=== PATIENT | male | born 1945 | race Caucasian/White ===

== ENCOUNTER 2018-08-25 16:12 | Inpatient (IN) | payer MEDICARE, BC ==
[~2018-08-25] VITALS: Ht 175.3 cm; Wt 84.3 kg
--- NOTE | ~2018-08-25 | HEMODYNAMI ---
PATIENT:MILADYS MINER MEDICAL RECORD: [id number] : 43 LOCATION:[facility] D.2115 ADMISSION DATE: 08/25/18 Generatedon:08/26/20189:39 Patient name: MILADYS MINER Patient #: [id number] SSN: : 1945 Date of study: 08/26/2018 Page: Of Hemodynamic Procedure Report Patient Data Patient Demographics Procedure consent was obtained First Name: MILADYS Gender: Male Last Name: ISIDRA : 1945 [facility] Initial: R Age: 73 year(s) Patient #: [id number] Race: Unknown Additional ID: [id number] Contact details Address: [address] [address] State: [place] City: [place] Zip code: [address] Past Medical History Allergies Allergen Reaction Date Comments Reported Other allergy 08/26/2018 PCN Admission Admission Data Admission Date: 08/25/2018 Admission Time: 20:57 Admit Source: Other Room #: [facility] Procedure Procedure Types Cath Procedure Diagnostic Procedure C LHC w/Coronaries Peripheral Cath Diagnostic Procedure Permanent Mold Supervisor Peripheral Procedures Oyanq-Niotjco-Fuv-Off Procedure Description Procedure Date Procedure Date: 08/26/2018 Procedure Start Time: 9:26 Procedure End Time: 9:39 Procedure Staff Name Function Jhonny Young MD Performing Physician Sherif Kiser RT Monitor Zay Phillips RT Scrub Karoline Dhillon RT Scrub Iza Chacko RN Nurse Procedure Data Cath Procedure Fluoroscopy Diagnostic fluoroscopy Total fluoroscopy Time: 1.9 time: 1.9 min min Diagnostic fluoroscopy Total fluoroscopy dose: 641 dose: 641 mGy mGy Contrast Material Contrast Material Type Amount (ml) Isovue 300 116 Entry Location Entry Primary Successful Side Size Upsize Upsize Entry Closure Succes sful Closure Location (Fr) 1 (Fr) 2 (Fr) Remarks Device Remarks Femoral Right 5 Fr Exoseal artery Estimated blood loss: 5 ml Diagnostic catheters Device Type Used For End Catheter Placement MULTIPACK Pigtail 5 Fr Procedure catheter MULTIPACK JL 4.0 5Fr Procedure catheter MULTIPACK 3DRC 5Fr Procedure catheter Procedure Complications No complications Procedure Medications Medication Administration Route Dosage 0.9% NaCl I.V. 100 ml/hr Oxygen etCO2 Nasal cannula 2 l/min Lidocaine 2% added to field 20 Heparin Flush Bag added to field 2 bags (1000units/500ml NS) Versed I.V. 2 mg Fentanyl I.V. 50 mcg Versed I.V. 2 mg Fentanyl I.V. 50 mcg Hemodynamics Rest Heart Rate: 81 (bpm) Pressure Samples Time Site Value (mmHg) Purpose Heart Use Rate(bpm) 9:27 LV 153/18,21 Snapshot 80 9:27 AO 154/86(116) Pullback 79 9:27 LV 149/25,21 Pullback 79 Gradients Valve Time Site 1 Site 2 Mean SEP/DFP Peak To Heart Use (mmHg) (sec/min) Peak Rate (mmHg) (bpm) Aortic 9:27 LV AO 0 6 0 79 149/25,21 154/86(116) Calculations Valve P-P Mean Valve Index Valve Source Name Gradient Area Flow (cm2) Aortic 0 0 0 0 Snapshots Pre Cath Intra NCS Post Cath Vital Signs Time Heart Resp SPO2 etCO2 NIBP (mmHg) Rhythm Pain Sedation Rate (ipm) (%) (mmHg) Status Level (bpm) 9:02:48 76 19 98 33.5 183/108(146) NSR 0 (11) 10(A) , No pain 9:07:12 92 17 98 34.2 172/101(144) NSR 0 (11) 10(A) , No pain 9:11:28 80 14 97 40.9 155/89(131) NSR 0 (11) 10(A) , No pain 9:15:46 77 13 97 38.7 155/95(129) NSR 0 (11) 10(A) , No pain 9:20:00 80 10 97 37.2 153/93(124) NSR 0 (11) 10(A) , No pain 9:24:14 77 11 98 37.2 145/89(118) NSR 0 (11) 10(A) , No pain 9:28:30 83 13 97 40.1 146/85(121) NSR 0 (11) 10(A) , No pain 9:32:44 85 13 98 38.7 135/91(115) NSR 0 (11) 9(A) , No pain 9:37:00 86 28 98 29 131/78(105) NSR 0 (11) 10(A) , No pain Medications Time Medication Route Dose Verified Delivered Reason Notes Effe ctiveness by by 9:02:56 0.9% NaCl I.V. 100 Jhonny Iza used for ml/hr Denio Ricco procedure RN 9:03:41 Oxygen etCO2 2 Jhonny Iza used for Nasal l/min [facility] procedure cannula MD CRUZ 9:03:48 Lidocaine 2% added 20ml Jhonny Jhonny for local to vial [facility] anesthetic field MD PATTERSON 9:04:38 Heparin Flush added 2 Jhonny Jhonny used for Bag to bags [facility] procedure (1000units/500ml field MD PATTERSON NS) 9:22:58 Versed I.V. 2 mg Jhonny Iza for Denio Ricco sedation MD CRUZ 9:23:04 Fentanyl I.V. 50 Jhonny Iza for mcg Denio Ricco sedation MD CRUZ 9:28:27 Versed I.V. 2 mg Jhonny Iza for Denio Ricco sedation MD CRUZ 9:28:34 Fentanyl I.V. 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 8:32:15 H&P Date Dictated: 08/25/2018 Within 30 days and on chart.. 8:33:11 Lab Result : BUN 22 mg/dl 8:33:11 Lab Result : Creatinine 1.3 mg/dl 8:33:11 Lab Result : Hemoglobin 16.2 g/dl 8:33:11 Lab Result : Hematocrit 46.5 % 8:33:13 Lab results completed and on chart. 8:42:20 Zay SALINAS(R) sent for patient. Start room use. 8:55:38 Procedure type changed to Cath procedure, Diagnostic procedure, LHC, LHC w/Coronaries, Peripheral Cath Diagnostic Procedure, Permanent Mold Supervisor Peripheral Procedures, Rxkye-Fzfdduv-Zbg-Off 8:55:45 Patient received from Med II to CCL 1 Alert and oriented. Tansferred to table in Supine position. 8:55:46 Warm blankets applied, and natalee hugger turned on for patient comfort. 8:55:47 Correct patient and procedure confirmed by team. 8:55:47 ECG and BP/O2 sat monitors applied to patient. 8:55:48 Pre-procedure instructions explained to patient. 8:55:48 Pre-op teaching completed and patient verbalized understanding. 8:55:50 Family in patients room. 8:55:51 Patient NPO since Midnight. 8:56:00 Patient allergic to Other allergyPCN 9:01:33 Vital chart was started 9:01:37 Rhythm: sinus rhythm 9:01:39 Full Disclosure recording started 9:01:42 Is the patient allergic to Iodine/contrast media? No. 9:01:45 Is patient on blood thinner?No 9:01:47 Patient diabetic? No. 9:01:50 Previous problem with sedation/anesthesia? No ? 9:01:52 Snore? Yes 9:01:53 Sleep apnea? No 9:01:54 Deviated septum? No 9:01:55 Opens mouth fully? Yes 9:01:56 Sticks out tongue? Yes 9:01:58 Airway obstruction? No ? 9:02:00 Dentures? No ? 9:02:03 Pre procedure: right dorsailis pedis pulse 1+ Palpable, but thready & weak; easily obliterated 9:02:07 Pre procedure: left dorsailis pedis pulse 1+ Palpable, but thready & weak; easily obliterated 9:02:10 Patient pain scale 0/10 ?. 9:02:15 IV patent on arrival in left forearm with 0.9% NaCl at KVO. 9:02:24 Bilateral groins area was prepped with chlora-prep and draped in sterile fashion 9:02:26 Alarms reviewed by R. N. 9:02:27 Sharps counted by scrub and verified by R.N. 9:02:56 0.9% NaCl 100 ml/hr I.V. was administered by Iza Chacko RN; used for procedure; 9:03:41 Oxygen 2 l/min etCO2 Nasal cannula was administered by Iza Chacko RN; used for procedure; 9:03:48 Lidocaine 2% 20ml vial added to field was administered by Jhonny Young MD; for local anesthetic; 9:04:38 Heparin Flush Bag (1000units/500ml NS) 2 bags added to field was administered by Jhonny Young MD; used for procedure; 9:11:20 Use device set Femoral Dx 9:11:21 ACIST Syringe (97787) opened to sterile field. 9:11:21 Bag Decanter (2002S) opened to sterile field. 9:11:22 ACIST Hand Control (62376) opened to sterile field. 9:11:22 ACIST Manifold (46302) opened to sterile field. 9:11:23 Tegaderm 4 x 4 (1626W) opened to sterile field. 9:11:24 SHEATH 5FR Manila (OMC436) opened to sterile field. 9:11:25 Medline Cath Pack ([id number]) opened to sterile field. 9:11:26 DIAGNOSTIC WIRE .035 260cm J wire (280406) opened to sterile field. 9:11:26 DIAGNOSTIC Multipack 5Fr catheter set ([id number]) opened to sterile field. 9:11:31 Physician arrived 9:11:32 --------ALL STOP TIME OUT------ 9:11:32 Final Timeout: patient, procedure, and site verified with staff and physician. All members of the team are in agreement. 9:11:34 Bilateral groins site verified by team. 9:11:36 Fire Safety Assessment: A--An alcohol-based skin anteseptic being used preoperatively., C--Open oxygen or nitrous oxide is being used., D--An ESU, laser, or fiber-optic light is being used. 9:11:39 Physical assessment completed. ASA score P 2 - A patient with mild systemic disease as per Jhonny Young MD. 9:11:41 Sedation plan: IV Moderate Sedation Medication:Versed, Fentanyl 9:15:17 Baseline sample Acquired. 9:22:58 Versed 2 mg I.V. was administered by Iza Ricco RN; for sedation; 9:23:04 Fentanyl 50 mcg I.V. was administered by Iza Chacko RN; for sedation; 9:25:40 Zero performed for pressure channel P1 9::47 Procedure started. 9::49 Local anesthetic to right femoral artery with Lidocaine 2% by Jhonny Young MD.INITIAL ACCESS ONLY 9:26:56 A 5 Fr sheath was inserted into the Right Femoral artery 9:27:00 A MULTIPACK Pigtail 5 Fr catheter was advanced over the wire and used for Procedure. 9::26 LV gram done using MANUEL 9::29 Injector settings: Ml/sec: 10, Volume: 20, 9:27:33 LV hemodynamics recorded. 9:27:37 EF : 55 % 9:28:24 Abdominal angiogram w/ runoff was performed. 9:28:25 Left leg runoff performed. 9::27 Versed 2 mg I.V. was administered by zIa Chacko RN; for sedation; 9::34 Fentanyl 50 mcg I.V. was administered by Iza Chacko RN; for sedation; 9:28:36 Right leg runoff performed. 9:29:14 Catheter exchanged over wire. 9:29:18 A MULTIPACK JL 4.0 5Fr catheter was advanced over the wire and used for Procedure. 9:30:53 LCA angiography performed. 9:31:57 Catheter exchanged over wire. 9:32:01 A MULTIPACK 3DRC 5Fr catheter was advanced over the wire and used for Procedure. 9:32:55 RCA angiography performed. 9:35:24 Catheter removed. 9:35:25 EXOSEAL 5Fr (EX500) opened to sterile field. 9:37:24 Sheath removed intact; hemostasis achieved with Exoseal to the Right Femoral artery. 9:37:26 Procedure ended.(Physican Out) 9:37:39 Fluoroscopy time 01.90 minutes. 9:37:43 Fluoroscopy dose: 641 mGy 9:37:43 Flurop Dose total: 641 9:37:46 Contrast amount:Isovue 300 116ml. 9:37:48 Sharps counted by scrub and verified by R.N. 9:38:20 Post-op/insertion site Right Femoral artery dressed using a 4 x 4 and Tegaderm. 9:38:24 Post right femoral artery:stable, soft, clean and dry 9:38:25 Post Procedure Pulses reassessed and unchanged 9:38:28 Post-procedure physical assessment completed. ASA score P 2 - A patient with mild systemic disease as per Jhonny Young MD. 9:38:31 Post procedure rhythm: unchanged. 9:38:42 Estimated blood loss: 5 ml 9:38:44 Post procedure instruction explained to patient.Patient verbalizes understanding. 9:38:44 Patient needs reinforcement of post procedure teaching. 9:39:13 Procedure Complication : No complications 9:39:15 Vital chart was stopped 9:39:15 See physician's report for complete and final results. 9:39:18 Report given to PCU. 9:39:21 Patient transfered to PCU with Stretcher. 9:39:23 Procedure ended. 9:39:23 Full Disclosure recording stopped 9:39:28 End room use (Document Last) Device Usage Item Name Manufacture Quantity Catalog Hospital Part Current Minimal L ot# / Number Charge Number Stock Stock Serial# Code ACIST Acist 1 41028 077606 733838 044015 20 Syringe Medical (98264) Systems Inc Bag Microtek 1 594266 78993 633717 5 Decanter Medical Inc. () ACIST Hand Acist 1 02909 465099 521888 311301 5 Control Medical (43510) Systems Inc ACIST Acist 1 72520 860289 808510 339776 5 Manifold Medical (19461) Systems Inc Tegaderm 4 3M 1 1626W 731467 210973 279710 5 x 4 (1626W) SHEATH 5FR Terumo 1 YIV896 880461 220225 699195 5 Manila (LXM911) Medline Medline 1 [id number] 571581 87083 811066 5 Cath Pack ([id number]) DIAGNOSTIC St Tariq 1 065089 077952 581590 685895 30 WIRE .035 260cm J wire (196858) DIAGNOSTIC Cardinal 1 QV9987 033468 48813 088194 30 Multipack Health 5Fr catheter set (YA0243) MULTIPACK Cardinal 1 067678 5 Pigtail 5 Health Fr catheter MULTIPACK Cardinal 1 232291 5 JL 4.0 5Fr Health catheter MULTIPACK Cardinal 1 374488 5 3DRC 5Fr Health catheter EXOSEAL 5Fr Cardinal 1 EX500 254475 943910 217808 10 (EX500) Health Signature Audit [place] Stage Time Signature Unsigned Intra-Procedure 08/26/2018 Sherif Kiser 9:39:42 AM RT(R) Signatures Monitor : Sherif Kiser RT Signature : Date : Time : [address] [place] [address]
[2018-08-25] MEDS ORDERED: NORVASC5 MG PO (16:35)
[2018-08-25] MEDS ORDERED: LIPITOR20 MG PO (16:35)
[2018-08-25] MEDS ORDERED: TRICOR145 MG PO (16:36)
[2018-08-25] MEDS ORDERED: NEURONTIN 300300 MG PO (16:36)
[2018-08-25] MEDS ORDERED: TOPROL XL50 MG PO (16:36)
[2018-08-25] MEDS ORDERED: LOW DOSE ASPIRI81 M1 PO (16:36)
[2018-08-25 17:01] LABS: BASOPHILS 0.4 % (0-2); EOSINOPHILS 2.8 % (0-7); HEMATOCRIT 46.5 % (42.0-54.0); HEMOGLOBIN 16.2 g/dL (13.5-17.5); IMMATURE GRANULOCYTES 0.4 % (0-5); LYMPHOCYTES 21.9 % (15-50); MCH 31.6 pg (26.0-34.0); MCHC 34.8 g/dL (31.0-37.0); MCV 90.6 fL (80.0-100.0); MEAN PLATELET VOLUME 10.2 fL (7.4-10.4); MONOCYTES 9.8 % (2-11); NEUTROPHILS 64.7 % (40-80); PLATELET COUNT 203 10x3/uL (130-400); RBC 5.13 10x6/uL (4.20-6.10); RDW 12.4 % (11.5-14.5); WBC 7.5 10x3/uL (4.8-10.8)
[2018-08-25 17:14] LABS: INR 1.06 (0.85-1.17); PROTIME 13.3 SECONDS (11.6-15.0)
[2018-08-25 17:28] LABS: ALBUMIN 3.7 g/dL (3.4-5.0); ALKALINE PHOSPHATASE 66 U/L (46-116); ALT (SGPT) 44 U/L (10-68); BILIRUBIN - TOTAL 0.39 mg/dL (0.2-1.3); CALC OSMOLALITY 278 mosm/kg (275-300); CARBON DIOXIDE 28.2 mmol/L (21.0-32.0); CHLORIDE - SERUM 102 mmol/L (98-107); CREATININE - SERUM 1.3 mg/dL (0.6-1.3); GLUCOSE 104 mg/dL (74-106); POTASSIUM - SERUM 4.2 mmol/L (3.5-5.1); PROTEIN - SERUM 6.9 g/dL (6.4-8.2); SODIUM 138 mmol/L (136-145); UREA NITROGEN 22 mg/dL (7-18); eGFR NON AFRICAN AMERICAN 57 mL/min (90-120)
[2018-08-25 17:49] LABS: CKMB 1.7 U/L (0.0-3.6); CREATINE KINASE 63 UL (21-232); MAGNESIUM - SERUM 2.3 mg/dL (1.8-2.4); TROPONIN-I 0.019 ng/mL (0.000-0.060)
[2018-08-25 17:58] VITALS: BP 159/88
[2018-08-25 18:58] VITALS: BP 143/86
--- NOTE | 2018-08-25 19:10 | NUR ---
PT REPORT NITRO RELIEVED CP A LITTLE BUT MAINLY REPORTS HAVING A HEADACHE AT THIS TIME. EXPLAINED VASODILATION PRIOR TO ADMIN AND AGAIN AT THIS TIME. PT ACKNOWLEDGED. PT STABLE AT HAND OFF TO ANTHONY GUEVARA. AT BEDSIDE.
--- NOTE | 2018-08-25 19:37 | NUR ---
ASSUMED CARE AT THIS TIME. PT DENIES CHEST PAIN AT THIS TIME. VSS. BP 170/97 HR 59, SPO2 96 RR 17. PT STATED HE HAD A HEADACHE BUT REFUSES ANY MEDICATION FOR IT. STATED IT WAS EASING UP. EXPLAINED TO PT THAT NITRO WILL CAUSE ALEXANDRE. PT VERBALIZED UNDERSTAINDS.
--- NOTE | 2018-08-25 22:45 | NUR ---
REPORT RECEIVED FROM ISMAEL CRUZ
--- NOTE | 2018-08-25 23:01 | NUR ---
ARRIVED TO FLOOR VIA WHEELCHAIR, ACCOMPANIED BY HOSPITAL STAFF AND FAMILY. ORIENTED TO UNIT AND PLACED ON TELEMETRY. CALL LIGHT IN REACH. SEE NURSE ASSESSMENT.
[2018-08-25] MEDS ORDERED: ALTACE10 MG PO (23:51)
[2018-08-26] VITALS (7 sets, daily range): BP systolic 120–158; BP diastolic 54–89; BMI 27.3
[2018-08-26 08:22] LABS: CALCIUM 9.2 mg/dL (8.5-10.1); CARBON DIOXIDE 26.8 mmol/L (21.0-32.0); CREATININE - SERUM 1.2 mg/dL (0.6-1.3); POTASSIUM - SERUM 3.8 mmol/L (3.5-5.1)
[2018-08-26 08:24] LABS: BASOPHILS 0.7 % (0-2); EOSINOPHILS 3.2 % (0-7); HEMATOCRIT 43.4 % (42.0-54.0); IMMATURE GRANULOCYTES 0.3 % (0-5); MCH 31.3 pg (26.0-34.0); MCHC 34.6 g/dL (31.0-37.0); MCV 90.4 fL (80.0-100.0); MEAN PLATELET VOLUME 10.4 fL (7.4-10.4); MONOCYTES 10.1 % (2-11); NEUTROPHILS 61.7 % (40-80); PLATELET COUNT 196 10x3/uL (130-400); RDW 12.5 % (11.5-14.5)
--- NOTE | 2018-08-26 08:50 | NUR ---
PRE-OPS GIV3EN. TO MINE INSPECTOR BY BED.
--- NOTE | 2018-08-26 11:54 | NUR ---
BED REST UP. GROIN STABLE.
--- NOTE | 2018-08-26 13:53 | NUR ---
BILAT SCDS ON ORDERED.
--- NOTE | 2018-08-26 16:51 | MORECARE ---
CASE MANAGEMENT DISCHARGE SUMMARY PATIENT: MILADYS MINER UNIT: [id number] ADM DATE: 08/25/18 AGE: 73 : [birth year] SEX: M ROOM/BED: D.2115 AUTHOR: GEORGE LALA PHYSICIAN: REFERRING PHYSICIAN: AMINA WILLETT MD DATE OF SERVICE: 08/26/18 Discharge Plan Patient Name: MILADYS MINER [facility] [facility] 1945 Planned Disposition: Anticipated Discharge Date: Discharge Date: Expected LOS: Initial Reviewer: [email or web address] Initial Review Date: 08/25/2018 Generated: 08/26/18 5:51 pm Coverage Notice Reviewer: [email or web address] - Dania Mendez Notice Issued Date-Time: 08/26/2018 16:21 Notice Type: Medicare Outpatient Observation Notice Notice Delivered To: Patient Relationship to Patient: Self Outside Plant Cable Engineer Name: Delivery Method: HAND - Hand Delivered Sandra Days: Prior Verbal Notification: Recipient Understood Notice: Yes Recipient Signature: Yes Med Rec Note Co-signed by Attending: Coverage Notice Comment: Patient Name: MILADYS MINER Page [phone] at 1651 All edits/amendments must be made on the electronic document DICTATION DATE: 08/26/181649 GIZZARD PEELER: GUCCI 08/26/181649 RPT#: [id number] DC DATE: STATUS: ADM IN [address] [address] [place] [address] END OF REPORT
[2018-08-26 17:41] LABS: BASOPHILS 0.6 % (0-2); EOSINOPHILS 2.4 % (0-7); HEMATOCRIT 45.7 % (42.0-54.0); HEMOGLOBIN 16.1 g/dL (13.5-17.5); IMMATURE GRANULOCYTES 0.2 % (0-5); LYMPHOCYTES 21.3 % (15-50); MCH 31.6 pg (26.0-34.0); MCHC 35.2 g/dL (31.0-37.0); MCV 89.6 fL (80.0-100.0); MEAN PLATELET VOLUME 10.1 fL (7.4-10.4); MONOCYTES 10.4 % (2-11); NEUTROPHILS 65.1 % (40-80); PLATELET COUNT 200 10x3/uL (130-400); RDW 12.4 % (11.5-14.5); WBC 6.3 10x3/uL (4.8-10.8)
[2018-08-26 17:59] LABS: APTT 26.4 SECONDS (22.8-39.4); INR 1.04 (0.85-1.17); PROTIME 13.1 SECONDS (11.6-15.0)
[2018-08-26 17:59] LABS: APPEARANCE CLEAR (CLEAR); BILIRUBIN NEGATIVE (NEGATIVE); COLOR YELLOW (YELLOW); GLUCOSE NEGATIVE (NEGATIVE); KETONE NEGATIVE (NEGATIVE); NITRITE NEGATIVE (NEGATIVE); PROTEIN NEGATIVE (NEGATIVE); UROBILINOGEN NORMAL (NORMAL)
[2018-08-26 18:01] LABS: ALBUMIN 3.6 g/dL (3.4-5.0); ANION GAP 13.8 mmol/L (8-16); BILIRUBIN - TOTAL 0.45 mg/dL (0.2-1.3); CALCIUM 8.3 mg/dL (8.5-10.1); CARBON DIOXIDE 26.2 mmol/L (21.0-32.0); CREATININE - SERUM 1.3 mg/dL (0.6-1.3); PHOSPHOROUS 3.4 mg/dL (2.5-4.9); PROTEIN - SERUM 6.4 g/dL (6.4-8.2); T4 THYROXIN - FREE 1.14 ng/dL (0.76-1.46); THYROID STIMULATING HORMONE 1.89 uIU/mL (0.36-3.74); URIC ACID 4.8 mg/dL (2.6-7.2)
--- NOTE | 2018-08-26 19:43 | NUR ---
RESUMED CARE OF PT, LYING IN BED RESPIRATIONS EVEN AND UNLABORED ON ROOM AIR. 93 SR ON TELEMETRY. LEFT AC SALINE LOCKED. RIGHT GROIN CATH SITE C/D/I. PLAN OF CARE DISCUSSED, NPO AFTER MIDNIGHT TONIGHT. CALL LIGHT IN REACH. SEE NURSE ASSESSMENT.
--- NOTE | 2018-08-26 21:30 | NUR ---
CLIPPED AND SHOWERED, LINENS CHANGED AND NIGHT MEDS GIVEN.
[2018-08-27] VITALS (29 sets, daily range): BP systolic 68–154; BP diastolic 54–83; BMI 27.1
--- NOTE | 2018-08-27 05:30 | NUR ---
CAIN KUMARI AT BEDSIDE. PEDAL PULSES PALPATED AND MARKED.
[2018-08-27 05:36] LABS: BASOPHILS 0.6 % (0-2); EOSINOPHILS 3.1 % (0-7); HEMATOCRIT 42.6 % (42.0-54.0); HEMOGLOBIN 14.6 g/dL (13.5-17.5); IMMATURE GRANULOCYTES 0.5 % (0-5); LYMPHOCYTES 27.8 % (15-50); MCH 31.1 pg (26.0-34.0); MCHC 34.3 g/dL (31.0-37.0); MCV 90.8 fL (80.0-100.0); MEAN PLATELET VOLUME 10.2 fL (7.4-10.4); PLATELET COUNT 200 10x3/uL (130-400); RBC 4.69 10x6/uL (4.20-6.10); RDW 12.5 % (11.5-14.5); WBC 6.5 10x3/uL (4.8-10.8)
[2018-08-27 05:40] LABS: ANION GAP 12.1 mmol/L (8-16); CALCIUM 8.7 mg/dL (8.5-10.1); CARBON DIOXIDE 25.8 mmol/L (21.0-32.0); CREATININE - SERUM 1.5 mg/dL (0.6-1.3); POTASSIUM - SERUM 3.9 mmol/L (3.5-5.1)
--- NOTE | 2018-08-27 07:30 | NUR ---
RECEIVED PT IN BED AAOX4 RESP UNLABORED SKIN W/D COLOR WNL PT DENIES ANY NEEDS OR DISCOMFORT AT THIS TIME WILL CONTINUE TO MONITOR
--- NOTE | 2018-08-27 09:54 | NUR ---
PREOP MEDS GIVEN AT THIS TIME
--- NOTE | 2018-08-27 10:10 | NUR ---
PT LEFT UNIT VIA STRETCHER TO OR WITH STAFF NAD NOTED
--- NOTE | 2018-08-27 19:00 | NUR ---
REPORT RECEIVED AND ASSESSMENT COMPLETED. SEE FLOWSHEET FOR FULL DETAILS. VSS. PT IS POST OP CABG BY DR LEAL. AT THIS TIME, PT REMAINS INTUBATED. CURRENTLY ON NEOSYNEPHRINE AT O.4. WILL MONITOR CLOSELY THROUGHOUT SHIFT.
--- NOTE | 2018-08-27 20:23 | NUR ---
PT B/P DECREASED. CLARISA TITRATED TO MAINTAIN PARAMETERS. VSS. WILL MONITOR.
--- NOTE | 2018-08-27 20:59 | NUR ---
SHIFT ASSESSMENT ENTERED AT [address] AT 1900
--- NOTE | 2018-08-27 22:08 | NUR ---
BACTROBAN WAS UNAVAILABLE. PHARMACY CONTACTED AT 2100. AUTO BODY WORKER CONTACTED AT THIS TIME. WILL ADMIN WHEN AVAILABLE
--- NOTE | 2018-08-27 23:02 | NUR ---
BASE EXCESS -4.8. 1 AMP HCO3 TO BE GIVEN PER STANDING ORDERS.
--- NOTE | 2018-08-27 23:26 | NUR ---
PT EXTUBATED AT 2325. VSS. WILL MONITOR CLOSELY.
[2018-08-28] VITALS (47 sets, daily range): BP systolic 88–144; BP diastolic 54–85
--- NOTE | 2018-08-28 00:26 | NUR ---
PERCUSSION INSTRUCTOR CONTACTED AGAIN. STILL AWAITING BACTROBAN.
--- NOTE | 2018-08-28 03:04 | NUR ---
COMPLETE BED BATH AND LINEN CHANGE PERFORMED VSS WILL MONITOR
--- NOTE | 2018-08-28 05:14 | NUR ---
TITRATING CLARISA TOLERATED. WILL ASSIST PT TO CHAIR. VSS. WILL MONITOR
--- NOTE | 2018-08-28 05:14 | NUR ---
0400 RADIOLOGY AT BEDSIDE. IMAGES COMPLETED. PT DANGLED AT BEDSIDE. VSS. WILL CONTINUE TO MONITOR
[2018-08-28 06:09] LABS: BASOPHILS 0.1 % (0-2); EOSINOPHILS 0 % (0-7); HEMATOCRIT 39.7 % (42.0-54.0); HEMOGLOBIN 13.5 g/dL (13.5-17.5); IMMATURE GRANULOCYTES 0.1 % (0-5); LYMPHOCYTES 4.4 % (15-50); MCH 30.9 pg (26.0-34.0); MCV 90.8 fL (80.0-100.0); MEAN PLATELET VOLUME 10.4 fL (7.4-10.4); MONOCYTES 9.3 % (2-11); NEUTROPHILS 86.1 % (40-80); PLATELET COUNT 173 10x3/uL (130-400); RBC 4.37 10x6/uL (4.20-6.10); RDW 12.6 % (11.5-14.5)
[2018-08-28 06:23] LABS: WBC 11.8 10x3/uL (4.8-10.8)
[2018-08-28 06:30] LABS: ALBUMIN 2.9 g/dL (3.4-5.0); ANION GAP 15.2 mmol/L (8-16); BILIRUBIN - TOTAL 0.74 mg/dL (0.2-1.3); CALCIUM 7.5 mg/dL (8.5-10.1); CARBON DIOXIDE 27.1 mmol/L (21.0-32.0); CREATININE - SERUM 1.6 mg/dL (0.6-1.3); POTASSIUM - SERUM 4.3 mmol/L (3.5-5.1); PROTEIN - SERUM 5.2 g/dL (6.4-8.2)
--- NOTE | 2018-08-28 11:33 | NUR ---
1115: DR. LEAL HERE. MEDIASTINAL TUBES DC'D BY DR. LEAL. DRESSED WITH 4X4 AND TEGADERM. 1120: R RADIAL ART LINE DC'D. MAUAL PRESSURE HELD X 2 MIN. DRESSED WITH 2X2 AND TEGADERM.
--- NOTE | 2018-08-28 19:00 | NUR ---
REPORT RECEIVED AND ASSESSMENT COMPLETED. SEE FLOWHSEET FOR FULL DETAILS. VSS. WILL MONITOR THROUGHOUT SHIFT
[2018-08-29] VITALS (24 sets, daily range): BP systolic 98–142; BP diastolic 60–85
[2018-08-29 02:08] LABS: ALBUMIN 2.8 g/dL (3.4-5.0); BILIRUBIN - TOTAL 0.51 mg/dL (0.2-1.3); CARBON DIOXIDE 29.4 mmol/L (21.0-32.0); CREATININE - SERUM 1.4 mg/dL (0.6-1.3); MAGNESIUM - SERUM 2.2 mg/dL (1.8-2.4); POTASSIUM - SERUM 4.4 mmol/L (3.5-5.1); PROTEIN - SERUM 5.7 g/dL (6.4-8.2)
--- NOTE | 2018-08-29 02:10 | NUR ---
PT BEGAN COUGHING. WENT INTO A FIB AT A RATE OF 160-180 MD CONTACTED. ORDER RECEIVED FOR AMIO BOLUS WITH STANDARD DRIP ORDER AFTER COMPLETION. WILL CALL BACK IF NO CHANGE IN 20 MINS PER ORDER.
--- NOTE | 2018-08-29 02:50 | NUR ---
MD CONTACTED RATE REMAINS ELEVATED ORDERS RECEIVED FOR DILTIAZEM BOLUS 5MG WITH 5MG/HR GTT. WILL ADMINISTER
--- NOTE | 2018-08-29 03:51 | NUR ---
PT CONVERTED TO NSR AT 0351. WILL CONTINUE TO MONITOR
[2018-08-29 06:03] LABS: BASOPHILS 0.1 % (0-2); EOSINOPHILS 0 % (0-7); HEMATOCRIT 37.6 % (42.0-54.0); HEMOGLOBIN 12.8 g/dL (13.5-17.5); IMMATURE GRANULOCYTES 0.4 % (0-5); LYMPHOCYTES 6.8 % (15-50); MCH 31.1 pg (26.0-34.0); MCV 91.5 fL (80.0-100.0); MEAN PLATELET VOLUME 10.6 fL (7.4-10.4); MONOCYTES 8.7 % (2-11); PLATELET COUNT 155 10x3/uL (130-400); RBC 4.11 10x6/uL (4.20-6.10); RDW 12.8 % (11.5-14.5); WBC 13.6 10x3/uL (4.8-10.8)
[2018-08-29 06:23] LABS: ALBUMIN 2.7 g/dL (3.4-5.0); ANION GAP 12.1 mmol/L (8-16); BILIRUBIN - TOTAL 0.54 mg/dL (0.2-1.3); CALCIUM 7.8 mg/dL (8.5-10.1); CREATININE - SERUM 1.3 mg/dL (0.6-1.3); POTASSIUM - SERUM 4.1 mmol/L (3.5-5.1); PROTEIN - SERUM 5.6 g/dL (6.4-8.2)
--- NOTE | 2018-08-29 08:35 | NUR ---
0730: REC'D AWAKE AND ALERT. APPEARS SOB. O2 @ 15LPM VIA HIGH FLOW CANNULA. HR REMAINS 120S TO 140S. ENCOURAGED TO COUGH AND DEEP BREATHE WITHOUT SUCCESS. SPO2 88%. PULLED ONLY 250CC ON INCENTIVE SPIROMETRY. LEXIE BREATH SOUNDS DIMINISHED. 0750: RESP THERAPY HERE. O2 NOW FLUSH. ENCOURAGED TO COUGH AND DEEP BREATHE WITHOUT SUCCESS. STATES "IT HURTS TOO BAD" . LAST PAIN MED AT 0615. 0758: DR. LEAL NOTIFIED OF PATIENT STATUS. NEW ORDERS REC'D. 0802: LASIX 40MG GIVEN IV. ABGS DRAWN. 0805: TEMP PACER ATTACHED VENTRICULAR PACING WIRE. 0830: SPO2 94%. APPEARS TO BE RESTING EASIER. HR REMAINS 120S. UNCONTROLLED ATRIAL FIB. 0815: PLACED ON BIPAP. IPAP 13 EPAP 8 FIO2 100%.
--- NOTE | 2018-08-29 13:28 | OP ---
PATIENT NAME: MILADYS MINER MEDICAL RECORD: [id number] :43 LOCATION:[facility] ADMISSION DATE:08/26/18 SURGEON: ROLANDO LEAL MD DATE OF OPERATION: 08/27/2018 SURGEON: Rolando Leal MD LABORER FILTER PLANT: JOSE RAMON Castillo MD and Raulito Francisco. PREOPERATIVE DIAGNOSIS: Coronary artery disease. POSTOPERATIVE DIAGNOSIS: Coronary artery disease. ANESTHESIA: General endotracheal anesthesia. ESTIMATED BLOOD LOSS: Total cardiopulmonary bypass with Cell Saver retransfusion. COMPLICATIONS: None. SPECIMENS: None. CONDITION: Stable. DISPOSITION: CV ICU. OPERATIVE FINDINGS: 1. Normal transesophageal echocardiography with good contractility before and after cardiopulmonary bypass. 2. Good quality greater saphenous vein harvested endoscopically from the right leg. 3. Good quality internal mammary artery. The LAD was a severely diseased 2.0-mm vessel. All vessels had severe disease with particularly the LAD and PDA grafts as well as the first obtuse marginal and/or at plaque. 4. The obtuse marginal graft was a sequential OM1, OM2. Both were 2.0-mm vessel with severe disease. 5. Posterior descending artery 1.5-mm with severe disease. OPERATIVE INDICATION: Coronary artery disease. OPERATIVE PROCEDURE IN DETAIL: The patient was brought to the operative suite. General anesthesia was obtained. The patient was prepped and draped. Greater saphenous vein was harvested from the right lower extremity utilizing endoscopic technique. Side branches were divided with electrocautery. The vessels ligated proximally and distally and removed. Side branches were clipped or tied and thin sites were oversewn. This was performed by Dr. Castillo and the use of an bacteriology research assistant surgeon to prepare and inspect the greater saphenous vein saved approximately 30 minutes of general anesthetic time. Later, the leg was closed in 2 layers and wrapped with an elastic wrap. Median sternotomy incision was made. Subcutaneous tissue was divided by electrocautery. The sternum was divided with a saw. The left hemisternum was elevated. Left pleural cavity was entered. A large xiphoid was excised as it had upward extension. Left internal mammary and vein was taken down as a pedicle graft. OPERATIVE REPORT [id number] MILADYS MINER Sternal retractor was placed. Pericardium was opened. Heparin was given. Aorta was cannulated. Dual-stage venous cannula was inserted. The internal mammary was clipped distally and made ready for anastomosis. The patient was placed on cardiopulmonary bypass. Sites for distal anastomosis were selected. Antegrade cardioplegia needle was inserted. The patient was cooled. Crossclamp was placed. Cardioplegia given antegrade and this was repeated at interval 15-20 minute intervals including down the completed vein grafts. Distal anastomosis was performed in standard technique, proximal anastomosis with single cross-clamp technique. Aortic root was de-aired with the patient in Trendelenburg position, cross-clamp was removed. Aortic root was de-aired, proximal aspect was tied down. Pump flow restored. Vein graft was de-aired and flow restored. A single suture in the distal end of the internal mammary. The patient resumed a spontaneous rhythm, weaned from cardiopulmonary bypass and was stable. The patient was decannulated. Aortic cannula site was oversewn. Protamine was given. Thorough irrigation was undertaken. The grafts lay appropriately. Ventricular pacing wires were placed. A drain was placed in the mediastinum and left pleural cavity. Left chest was evacuated, irrigated. The internal mammary harvest site was without bleeding. Sternal wires were placed after loosely reapproximating the pericardial fat. The patient was stable. Chest closed. Fascia was closed. Subcutaneous tissue was closed. Skin was closed. Dermabond was placed. The needle and sponge counts were correct and the patient was taken to ICU in stable condition. TRANSINT:[id number] Voice Confirmation ID: [id number] DOCUMENT ID: [id number] ROLANDO LEAL MD at 1328 CC: BRIDGER GARCIA [id number] DICTATION DATE: 08/27/181721 STEMHOLE BORER: 08/28/18 0033 ADM IN [facility] [address] [id number]
--- NOTE | 2018-08-29 13:28 | NUR ---
DR. LEAL HERE. NEW ORDERS REC'D. CARDIZEM GTT DC'D AND SOTOLOL 80MG GIVEN PO. REMOVED FROM BIPAP FOR BREAK. O2 VIA HFC @ 13LPM.
--- NOTE | 2018-08-29 15:30 | NUR ---
DR. LEAL NOTIFIED OF UNCONTROLLED ATRIAL FIB RATE 120-140. NEW ORDERS REC'D.
--- NOTE | 2018-08-29 19:14 | NUR ---
REPORT RECEIVED, SHIFT ASSESSMENT COMPLETED PER FLOW SHEET. ALERT AND ORIENTED X4. RT IJ CVL INFUSING CARDIZEM AT 10 MLS/HR OR 10 MG/HR. LT SUBSTERNAL CT TO EUGENIA DRAIN COMPRESSED, SEROSANGUINEOUS OUTPUT NOTED. SUBSTERNAL TPM WIRE CONNECTED TO TPM BUT NOT TURNED ON. ON BIPAP AT 100%. DENIES NEEDS. SEE FLOW SHEET FOR COMPLETE ASSESSMENT. CALL LIGHT WITHIN REACH. WILL CONTINUE TO MONITOR.
--- NOTE | 2018-08-29 21:09 | NUR ---
SCHEDULED MEDS GIVEN, BIPAP REMOVED AND PATIENT PLACED ON 13 L OXYMIZER. WATER WITH ICE PROVIDED, NO DYSPHAGIA. PATIENT DESATTING TO 87%, ENCOURAGED COUGH/DEEP BREATHING, BREATHING SHALLOW, COUGH STRONG. IS ENCOURAGED PULLING 1000 X10, O2 IMPROVED TO 88%. PLACED BACK ON BIPAP, O2 IMMEDIATELY IMPROVED TO 96%. CALL LIGHT WITHIN REACH. WILL CONTINUE TO MONITOR.
--- NOTE | 2018-08-29 23:18 | NUR ---
REASSESSMENT COMPLETED PER FLOW SHEET, SEE FOR DETAILS. VSS. DENIES NEEDS. CALL LIGHT WITHIN REACH. WILL CONTINUE TO MONITOR.
[2018-08-30] VITALS (24 sets, daily range): BP systolic 99–121; BP diastolic 36–87; Ht 175.3 cm; Wt 84.3 kg
--- NOTE | 2018-08-30 01:00 | NUR ---
NO ACUTE DISTRESS NOTED, DENIES NEEDS, CALL LIGHT WITHIN REACH. WILL CONTINUE TO MONITOR.
--- NOTE | 2018-08-30 03:13 | NUR ---
REASSESSMENT COMPLETED PER FLOW SHEET, SEE FOR DETAILS. NO ACUTE CHANGES NOTED. DENIES NEEDS. CALL LIGHT WITHIN REACH. WILL CONTINUE TO MONITOR.
--- NOTE | 2018-08-30 04:06 | NUR ---
XR PERSONNEL AT BEDSIDE FOR AM XR. PATIENT DENIES NEEDS.
--- NOTE | 2018-08-30 06:00 | NUR ---
DENIES NEEDS AT THIS TIME, CALL LIGHT WITHIN REACH.
[2018-08-30 06:48] LABS: ALBUMIN 2.3 g/dL (3.4-5.0); ANION GAP 9.9 mmol/L (8-16); BILIRUBIN - TOTAL 0.56 mg/dL (0.2-1.3); CALCIUM 7.9 mg/dL (8.5-10.1); CARBON DIOXIDE 31.1 mmol/L (21.0-32.0); CREATININE - SERUM 1.1 mg/dL (0.6-1.3); PROTEIN - SERUM 5.4 g/dL (6.4-8.2)
[2018-08-30 06:52] LABS: BASOPHILS 0.1 % (0-2); EOSINOPHILS 0.2 % (0-7); HEMATOCRIT 33.3 % (42.0-54.0); HEMOGLOBIN 11.1 g/dL (13.5-17.5); IMMATURE GRANULOCYTES 0.3 % (0-5); LYMPHOCYTES 9.1 % (15-50); MCH 30.7 pg (26.0-34.0); MCHC 33.3 g/dL (31.0-37.0); MCV 92.2 fL (80.0-100.0); MEAN PLATELET VOLUME 10.6 fL (7.4-10.4); MONOCYTES 8.3 % (2-11); PLATELET COUNT 140 10x3/uL (130-400); RBC 3.61 10x6/uL (4.20-6.10); RDW 12.7 % (11.5-14.5); WBC 11.2 10x3/uL (4.8-10.8)
--- NOTE | 2018-08-30 07:50 | NUR ---
0700 PT RECIEVED IN BED ALERT AND ORIENTED O2 13L VSS, HR SINUS RHYTHM, R IJ CVL DRESSING CDI WITH CARDIZEM 10ML/HR, MIDSTERNAL AND SUBSTERNAL DRESSINGS CDI WITH SUBSTERNAL TPM WIRE ATTACHED TO TPM, TPM OFF,SUBSTERNAL EUGENIA DRAIN, RECOMPRESSED, RLE HARVEST SITES WELL APPROXIMATED, NO DRAINAGE, TEDS AND SCDS ON, 0725 PT CONVERTED TO AFIB HR 100-120S, DR LEAL NOTIFIED WITH ORDERS TO GIVE BETAPACE DOSE NOW, LEAVE IN BED, AND PUT ON A FACE MASK, RT NOTIFIED AND PLACED ON NON REBREATHER AND PO SOTALOL GIVEN PER EMAR
--- NOTE | 2018-08-30 09:25 | NUR ---
DR GILL NOTIFIED OF CONSULT, ORDERS FOR ABGS, RT AWARE
--- NOTE | 2018-08-30 10:03 | NUR ---
0930 PT HR DROPPED TO 30 BRIEFLY BEFORE RETURNING TO AFIB 90S-100, DR OMALLEY NURSE KARTHIKEYAN NOTIFIED, WILL WAIT ON GETTING OOB AT THIS TIME 0957 APPROX5 SECONDS OF ASYSTOLE NOTED ON MONITOR FOLLOWED BY HR IN 50S, TPM TURNED OF VVI, PT CURRENTLY AFIB 100S, PAGED KARTHIKEYAN AND NOTIFIED OF EVENT, LEAVING IN BED AT THIS TIME, PT ASYMPTOMATIC OF CHANGES
--- NOTE | 2018-08-30 10:48 | NUR ---
PER DR BYRD/LYSSA NURSE ELIJAH ASSISTED PT UP TO CHAIR
--- NOTE | 2018-08-30 11:05 | NUR ---
EUGENIA DRAIN REMOVED BY DR OMALLEY NURSE
--- NOTE | 2018-08-30 11:45 | NUR ---
RECEIVED REPORT AND ASSUMED CARE OF PATIENT. PATIENT RESTING QUIETLY SITTING UP IN BEDSIDE CHAIR WITH EYES CLOSED, VSS. EASILY AROUSED BY VOICE, NO COMPLAINTS VOICED. GIVEN LUNCH TRAY BUT STATES DOESNT HAVE MUCH OF AN APPETITE.
--- NOTE | 2018-08-30 12:59 | NUR ---
PATIENT STATES NOT MUCH OF AN APETITE AND C/O NAUSEA. GIVEN PRN ZOFRAN 4 MG IVP WITH NS FLUSH PER ORDER. WILL CONTINUE TO MONITOR.
--- NOTE | 2018-08-30 13:39 | NUR ---
AHA diet with 0-25% intake of meals Pt is sleeping now Spoke with nursing-pt does not have much of an appetite and reports some nausea Will trial Ensure today and follow up RD following
--- NOTE | 2018-08-30 14:00 | NUR ---
DR. GILL AT ROOM UPDATED AND EXAMINES PATIENT.
--- NOTE | 2018-08-30 14:20 | NUR ---
PATIENT REQUESTS TO GET BACK IN BED, ASSISTED BACK TO BED AND WITH POSITIONING. VSS.
--- NOTE | 2018-08-30 14:49 | NUR ---
REASSESSMENT COMPLETED. PATIENT RESTING QUIETLY, VSS. EASILY AROUSED BY VOICE. STATES NAUSEA IMPROVED RATES /. CM - A-FIB RATE 98-120S. VSS. SPO2 - 95% ON 6 LPM VIA HIGH FLOW NC. WILL CONTINUE TO MONITOR.
--- NOTE | 2018-08-30 16:55 | NUR ---
PATIENT UP TO BATHROOM WITH STANDBY ASSIST, HR INCREASED TO 130'S AFIB. URINATES, NO BM.
--- NOTE | 2018-08-30 17:18 | NUR ---
PATIENT RESTING QUIETLY IN BED, STATES NO APETITE FOR DINNER TRAY.WILL CONTINUE TO MONITOR, VSS.
--- NOTE | 2018-08-30 17:37 | NUR ---
PATIENT UP TO BEDSIDE COMMODE, PASSES GAS BUT NO BM.
--- NOTE | 2018-08-30 19:11 | NUR ---
REPORT RECEIVED, SHIFT ASSESSMENT COMPLETED PER FLOW SHEET. PATIENT SITTING ON BEDSIDE COMMODE. TELEMETRY MONITORING A-FIB. X1 LARGE LIQUID GREEN/BROWN BM NOTED. ASSISSTED BACK IN BED. 6 L O2 VIA OXYMIZER. SUBSTERNAL TPM WIRE CONNECTED TO TPM BUT NOT TURNED ON, DRESSING C/D/I. WATER WITH ICE PROVIDED PER PATIENT'S REQUEST. DENIES OTHER NEEDS. CALL LIGHT WITHIN REACH. WILL CONTINUE TO MONITOR.
--- NOTE | 2018-08-30 21:03 | NUR ---
CALLED, SECURITY CALL CODE VERIFIED, UPDATE GIVEN, QUESTIONS ANSWERED.
--- NOTE | 2018-08-30 23:01 | NUR ---
REASSESSMENT COMPLETED PER FLOW SHEET, SEE FOR DETAILS. ON BIPAP AT 50%, O2 SAT 98%. DENIES NEEDS. WILL CONTINUE TO MONITOR.
[2018-08-31] VITALS (33 sets, daily range): BP systolic 91–128; BP diastolic 58–98
--- NOTE | 2018-08-31 01:07 | NUR ---
REMAINS ON BIPAP, 200 MLS OF EMA UOP EMPTIED FROM URINAL. FAN TURNED ON PER HIS REQUEST. DENIES OTHER NEEDS. CALL LIGHT WITHIN REACH. WILL CONTINUE TO MONITOR.
--- NOTE | 2018-08-31 02:21 | NUR ---
HR 68, REMAINS IN NS, CARDIZEM TURNED DOWN TO 5 MLS/HR. WILL CONTINUE TO MONITOR.
--- NOTE | 2018-08-31 03:24 | NUR ---
REASSESSMENT COMPLETED PER FLOW SHEET, SEE FOR DETAILS. WATER WITH ICE PROVIDED. DENIES OTHER NEEDS. CALL LIGHT WITHIN REACH.
--- NOTE | 2018-08-31 05:00 | NUR ---
RESTING, WATER WITH ICE PROVIDED. DENIES OTHER NEEDS.
[2018-08-31 06:39] LABS: INR 1.06 (0.85-1.17); PROTIME 13.3 SECONDS (11.6-15.0)
[2018-08-31 06:47] LABS: ALBUMIN 2.2 g/dL (3.4-5.0); ANION GAP 12.4 mmol/L (8-16); BILIRUBIN - TOTAL 0.57 mg/dL (0.2-1.3); CALCIUM 8.2 mg/dL (8.5-10.1); CARBON DIOXIDE 29.6 mmol/L (21.0-32.0); CREATININE - SERUM 1.2 mg/dL (0.6-1.3); PROTEIN - SERUM 5.6 g/dL (6.4-8.2)
--- NOTE | 2018-08-31 07:15 | NUR ---
CALLED AND SPOKE TO DR. LEAL, UDPATE GIVEN ON PATIENT, INFORMED HIM OF AFIB HR 140-160, NO NEW ORDERS RECEIVED. HE STATED HE WILL BE IN THE UNIT SHORTLY TO EXAMINE PATIENT.
[2018-08-31 07:31] LABS: BASOPHILS 0.1 % (0-2); EOSINOPHILS 0.7 % (0-7); HEMATOCRIT 33.1 % (42.0-54.0); HEMOGLOBIN 11.2 g/dL (13.5-17.5); IMMATURE GRANULOCYTES 0.3 % (0-5); LYMPHOCYTES 12.1 % (15-50); MCH 30.9 pg (26.0-34.0); MCHC 33.8 g/dL (31.0-37.0); MCV 91.2 fL (80.0-100.0); MONOCYTES 9.1 % (2-11); NEUTROPHILS 77.7 % (40-80); RBC 3.63 10x6/uL (4.20-6.10); RDW 12.4 % (11.5-14.5); WBC 9.7 10x3/uL (4.8-10.8)
[2018-08-31 07:32] LABS: PLATELET COUNT 184 10x3/uL (130-400)
--- NOTE | 2018-08-31 07:37 | NUR ---
BETAPACE 80MG TAB GIVEN AT THIS TIME PER DR. LEAL'S ORDERS.
--- NOTE | 2018-08-31 08:13 | NUR ---
META NEB TX NOT GIVEN HR 140-150 NURSE NOTIFED TX HELD
--- NOTE | 2018-08-31 08:31 | NUR ---
SITTING UP IN CHAIR EATING BREAKFAST. HR 79 AT THIS TIME. TRYING TO STAY NORMAL SINUS. WILL CONTINUE TO MONITOR.
--- NOTE | 2018-08-31 08:32 | NUR ---
ONLY STAYED IN NORMAL SINUS FOR A FEW SECONDS. BACK IN A-FIB AT 140S. WILL CONTINUE TO MONITOR.
--- NOTE | 2018-08-31 10:16 | NUR ---
CARDIZEM RESTARTED AT 10MG/H PER ELIJAH LEAL'S NURSE. IF HR FALL CLOSE TO 100 DECREASE CARDIZEM TO 5MG/HR. HR CURRENTLY IN 140S. SUBSTERNAL DRESSING CHANGED PER ORDERS. TPM IN PLACE AT THIS TIME. VVI 60, VMA 10, SENSITIVITY 2.
--- NOTE | 2018-08-31 10:51 | NUR ---
HELD MED PER NURSE HR HIGH 144
--- NOTE | 2018-08-31 13:25 | OP ---
PATIENT NAME: MILADYS MINER MEDICAL RECORD: [id number] :43 LOCATION:[facility] ADMISSION DATE:08/26/18 SURGEON: PARDEEP HOFFMAN MD DATE OF OPERATION: 08/26/2018 PROCEDURE: Left heart catheterization, selective coronary angiography artery plus aortofemoral runoff, right femoral artery approach. CATHETERS: A 5-Croatian sheath, 5/4 left and right Isidro, 5/4 pig. FINDINGS: Left ventriculography in 30-degree MANUEL view: Normal wall motion, normal systolic function. CORONARY ANATOMY: LEFT MAIN: Left main is free of disease. LAD: Has a diffuse stenosis in its proximal portion with the most severe being 90% fair target distally. CIRCUMFLEX: Circumflex has 2 large OMs, both with proximal stenosis of 80% to 90%. OM1 more diffuse, OM2 more discrete. RIGHT CORONARY ARTERY: Has about 80% stenosis in its midportion. IMPRESSION: Multivessel coronary disease. Given anatomy, probably best served for complete revascularization via coronary artery bypass grafting. The pigtail catheter was drawn to the level of the renal arteries. Aortofemoral runoff was performed. Abdominal aorta shows no evidence of dissection, no evidence of aneurysm. Nonselective renal angiogram shows no evidence of renal artery stenosis. RIGHT SYSTEM: The right iliac system, common, external, internal show luminal irregularities, no flow obstructive stenosis. Femoral system, superficial, common, and deep femoral are all just mild luminal irregularities and good 2-vessel runoff distally. LEFT SYSTEM: Left internal and external iliacs, no significant stenosis. Left femoral system, common deep and superficial all widely patent with only luminal irregularities and a 2-vessel runoff distally. TRANSINT:[id number] Voice Confirmation ID: [id number] DOCUMENT ID: [id number] PARDEEP HOFFMAN MD at 1325 CC: [id number] DICTATION DATE: 08/26/18 0944 POULTRY PATHOLOGIST: 08/26/18 1102 [place] [address]
--- NOTE | 2018-08-31 13:25 | CN ---
PATIENT NAME:MILADYS MINER MEDICAL RECORD: [id number] : 43 LOCATION:[facility] ADMIT DATE: 08/26/18 ACCOUNT: [id number] CONSULTING PHYSICIAN: PARDEEP HOFFMAN MD REFERRING PHYSICIAN: AMINA WILLETT MD DATE OF CONSULTATION: 08/26/2018 HISTORY OF PRESENT ILLNESS: A 73-year-old gentleman with known history of coronary artery disease, status post intervention, most recently in 2011. He has a history of claudication versus pseudoclaudication. He does take Neurontin for peripheral neuropathy. Symptoms fairly progressive over the past 2 weeks, had rest symptomology yesterday. He has been trying [id number] Prilosec, although in retrospect, he feels this is more reminiscent of his previous angina. We are asked to see him concerning his cardiovascular status. PAST MEDICAL HISTORY: Includes; 1. History of hypertension. 2. Hyperlipidemia. 3. Coronary artery disease as described above. ALLERGIES: PENICILLIN. MEDICATIONS: Include atorvastatin 20 at bedtime, TriCor 145 every day, Toprol 50 every day, ramipril 5 at bedtime, amlodipine 5 at bedtime, aspirin 81 every day, Neurontin 300 mg at bedtime. SOCIAL HISTORY: . Nonsmoker. Easily takes care of his ADLs. Has not been exercising lately due to apprehension about his underlying cardiac condition. REVIEW OF SYSTEMS: The patient reports easy bruising but reports no swollen glands. The patient reports no fever, no night sweats, no significant weight gain, no significant weight loss. No significant exercise tolerance. The patient reports no dry eyes, no irritation, no vision change. Patient reports no difficulty hearing and no ear pain. Patient reports no frequent nose bleeds or nose and sinus problems. Patient reports on arm pain on exertion. No shortness of breath while lying down. No history of heart murmur. Patient reports no cough, no wheezing or coughing up blood. Patient reports no abdominal pain, no vomiting. Normal appetite. No diarrhea and not vomiting blood. No nausea and no constipation. Patient reports no incontinence. No difficulty urinating. No hematuria. No increased frequency. Patient reports no muscle aches. No weakness, no arthralgias, no back pain. No swelling of the extremities. Patient reports no abnormal mole, no jaundice, no rashes. Reports no loss of consciousness. No weakness and no numbness. No seizures, dizziness, or headaches. The patient reports no depression, no sleep disturbance, feeling safe in a relationship and no alcohol abuse. Patient reports on fatigue. Reports no runny nose or sinus pressure. No itching, no hives, and no frequent sneezing. PHYSICAL EXAMINATION: GENERAL: Pleasant gentleman, in no acute distress. VITAL SIGNS: Blood pressure 129/71, pulse 63 and regular. HEENT: Normocephalic, atraumatic. NECK: No JVD or bruit. HEART: Regular. A II/ systolic ejection murmur. CONSULT REPORT [id number] MILADYS MINER LUNGS: Fairly good air excursion. ABDOMEN: Soft, nontender. EXTREMITIES: Pulses are decreased, 1+. There is no edema. IMPRESSION: 1. Acute coronary syndrome. 2. Hyperlipidemia. 3. Hypertension. 4. Claudication with decreased pulses. PLAN: We will plan for diagnostic angiography as well as lower extremity runoff. Further recommendations based on the above. TRANSINT:[id number] Voice Confirmation ID: [id number] DOCUMENT ID: [id number] PARDEEP HOFFMAN MD at 1325 CC: [id number] DICTATION DATE: 08/26/1834 BUTCHER ASSISTANT: 08/26/[address] [facility] IN [place] [id number] [place] [id number]
--- NOTE | 2018-08-31 14:00 | NUR ---
PT CONVERTED TO NORMAL SINUS ABOUT 1351. HR IN 80S AT THIS TIME. CARDIZEM DRIP DECREASED TO 5MG/HR. WILL CONTINUE TO MONITOR.
--- NOTE | 2018-08-31 14:21 | NUR ---
HR IN 70S NORMAL SINUS. DIGOXIN GIVEN PER ORDERS. WILL CONTINUE TO MONITOR.
--- NOTE | 2018-08-31 14:24 | NUR ---
JIM VITAL CD'D AT THIS TIME PER DR. LEAL'S ORDERS. WILL CONTINUE TO MONITOR.
--- NOTE | 2018-08-31 15:35 | NUR ---
ASSITED PT TO BEDSIDE COMMODE. WENT BACK INTO A-FIB AT THIS TIME. DR. LEAL NOTIFIED. HE ORDERED TO RESTART CARDIZEM DRIP AT 5MG/HR. PT IN CHAIR. AT THIS TIME. BATHED SELF. CLEAN GOWN PROVIDED. CARDIZEM DRIP RESTARTED AT 5MG/HR. WILL CONTINUE TO MONITOR.
--- NOTE | 2018-08-31 15:53 | NUR ---
CARDIZEM BAG CHANGED AT THIS TIME DUE TO EXPIRATION DATE AND TIME.
--- NOTE | 2018-08-31 16:03 | NUR ---
SPOKE WITH DR. GILL. WANTED TO SEE HOW MUCH OXYGEN THE PATIENT WAS ON AT THIS TIME. HE IS ON 2L OF O2 AT THIS TIME. ALSO ASKED ABOUT HR. CURRENT HR 120S A-FIB UNCONTROLLED. WANTS PT TO CONTINUE WITH I.S. EXERCISES Q HOURLY.
--- NOTE | 2018-08-31 16:13 | NUR ---
SPOKE WITH CHANTELL CUBA, PT'S DAUGHTER. SHE JUST WANTED TO CHECK ON HOW THE PATIENT WAS DOING. PASS CODE VERIFIED. INFORMED HER THAT THERE WERE NO NEW FINDINGS AT THIS TIME. PT IS STABLE AND CONTINUES ON VENT SUPPORT.
--- NOTE | 2018-08-31 17:53 | NUR ---
UP TO BEDSIDE COMMODE. VOIDED 50ML OF CONCENTRATED YELLOW URINE. CONTINUES IN A-FIB IN 110-120S. MEAL TRAY DELIVERED AND SET UP. NO FURTHER NEEDS AT THIS TIME. WILL CONTINUE TO MONITOR.
--- NOTE | 2018-08-31 18:49 | NUR ---
HR STAYING BETWEEN 120S TO 160S. DR. LEAL NOTIFIED. ORDERED TO GIVE NEXT DOSE OF BETAPACE NOW. IF HR DOESN'T CHANGE ONE HOUR AFTER BETAPACE IS GIVEN, INCREASE CARDIZEM TO 10MG/HR.
--- NOTE | 2018-08-31 19:08 | NUR ---
REPORT RECEIVED, SHIFT ASSESSMENT COMPLETED PER FLOW SHEET. PATIENT SITTING UP IN CHAIR. AAOX4. PPP. TELEMETRY MONITORING A-FIB HR FLACTUATING BETWEEN 120'S-150'S. BETAPACE GIVEN PER DAY SHIFT RN AT 1852, ORDERS RECEIVED TO INCREASE CARDIZEM TO 10 MG/HR IF HR DOES NOT DECREASE IN ONE HOUR, WILL CONTINUE TO MONITOR. PPP. TPM SET TO VVI 60, V.mA 10, SENSITIVITY 1. PATIENT DENIES NEEDS. ALL OTHER VITAL SIGNS STABLE. CALL LIGHT WITHIN REACH. WILL CONTINUE TO MONITOR. SEE FLOW SHEET FOR COMPLETE ASSESSMENT.
--- NOTE | 2018-08-31 19:40 | MORECARE ---
CASE MANAGEMENT DISCHARGE SUMMARY PATIENT: MILADYS MINER UNIT: [id number] ADM DATE: 08/26/18 AGE: 73 : 44 SEX: M ROOM/BED: [facility] AUTHOR: GEORGE LALA PHYSICIAN: REFERRING PHYSICIAN: AMINA WILLETT MD DATE OF SERVICE: 08/31/18 Discharge Plan Patient Name: MILADYS MINER Facility: [facility]:[place] : 1945 Planned Disposition: Home Health Service Anticipated Discharge Date: Discharge Date: Expected LOS: Initial Reviewer: [email or web address] Initial Review Date: 08/25/2018 Generated: 08/31/18 8:40 pm DCPIA - Discharge Planning Initial Assessment Updated by [email or web address]: Trang Morales on 08/31/18 7:39 pm * Is the patient Alert and Oriented? Yes * How many steps to enter\exit or inside your home? * PCP DR. VIK ORTA * Pharmacy [facility] * Preadmission Environment Home with Family * ADLs Independent * Equipment Cane * List name and contact numbers for known caregivers / representatives who currently or will assist patient after discharge: TEQUILA - SPOUSE - [phone], URSZULA - DAUGHTER- [phone] * Verbal permission to speak to the caregivers and representatives has been obtained from the patient. Yes * Community resources currently utilized None * Additional services required to return to the preadmission environment? No * Can the patient safely return to the preadmission environment? Yes * Has this patient been hospitalized within the prior 30 days at any hospital? No Coverage Notice Reviewer: [email or web address] Rody Najera [place] Notice Issued Date-Time: 08/26/2018 16:21 Notice Type: Medicare Outpatient Observation Notice Notice Delivered To: Patient Relationship to Patient: Self Vegetable Farm Manager Name: Delivery Method: HAND - Hand Delivered Sandra Days: Prior Verbal Notification: Recipient Understood Notice: Yes Recipient Signature: Yes Med Rec Note Co-signed by Attending: Coverage Notice Comment: Last DP export: 08/26/18 3:51 p Patient Name: MILADYS MINER Page [phone] at 1941 All edits/amendments must be made on the electronic document DICTATION DATE: 08/31/181938 CONTROL ROOM TECHNICIAN: GUCCI 08/31/181938 RPT#: [id number] GA DATE: STATUS: ADM IN [facility] [address] [place] [address] END OF REPORT
--- NOTE | 2018-08-31 19:47 | MORECARE ---
CASE MANAGEMENT DISCHARGE SUMMARY PATIENT: MILADYS MINER UNIT: [id number] ADM DATE: 08/26/18 AGE: 73 : 44 SEX: M [facility] AUTHOR: SPIKEDOC PHYSICIAN: REFERRING PHYSICIAN: AMINA WILLETT MD DATE OF SERVICE: 08/31/18 Discharge Plan Patient Name: MILADYS MINER Facility: [facility]:[place] : 1945 Planned Disposition: Home Health Service Anticipated Discharge Date: Discharge Date: Expected LOS: Initial Reviewer: [email or web address] Initial Review Date: 08/25/2018 Generated: 08/31/18 8:47 pm Comments DCP- Discharge Planning Updated by [id number]: Trang Morales on 08/31/18 6:[address] Patient Name: MILADYS MINER Admission Status: ER Accout number: [id number] Admission Date: 08-26-2018 : 1945 Admission Diagnosis:ACUTE ISCHEMIC HEART DISEASE, UNSPECIFIED Attending: AMINA WILLETT Current LOS: 5 Anticipated DC Date: Planned Disposition: Home Health Service Primary Insurance: MEDICARE A & B Discharge Planning Comments: CM met with patient and spouse at bedside. Patient states he lives at home with his Tequila. Patient plans to return to his home upon discharge. Patient denies any use of medical equipment in the home. He states he does have a cane and walker available if needed. He also denies any HH services prior to admission. Spouse is requesting home health services upon discharge. She states she has a niece that works with [employer]. CM will continue to follow and assist as needed with discharge planning / needs. Nuclear Equipment Design Engineer: Trang Morales DCPIA - Discharge Planning Initial Assessment Updated by [id number]: Trang Morales on 08/31/18 7:39 pm * Is the patient Alert and Oriented? Yes * How many steps to enter\exit or inside your home? * PCP DR. VIK ORTA * Pharmacy [facility] * Preadmission Environment Home with Family * ADLs Independent * Equipment Cane * List name and contact numbers for known caregivers / representatives who currently or will assist patient after discharge: TEQUILA - SPOUSE - [phone], URSZULA VARELA- [phone] * Verbal permission to speak to the caregivers and representatives has been obtained from the patient. Yes * Community resources currently utilized None * Additional services required to return to the preadmission environment? No * Can the patient safely return to the preadmission environment? Yes * Has this patient been hospitalized within the prior 30 days at any hospital? No Coverage Notice Reviewer: [id number] Rody Mendez Notice Issued Date-Time: 08/26/2018 16:21 Notice Type: Medicare Outpatient Observation Notice Notice Delivered To: Patient Relationship to Patient: Self Manual Arts Teacher Name: Delivery Method: HAND - Hand Delivered Sandra Days: Prior Verbal Notification: Recipient Understood Notice: Yes Recipient Signature: Yes Med Rec Note Co-signed by Attending: Coverage Notice Comment: Last DP export: 08/31/18 6:40 p Patient Name: MILADYS MINER Page [phone] at 1948 All edits/amendments must be made on the electronic document DICTATION DATE: 08/31/181945 DRY HEAT ROOM ATTENDANT: GUCCI 08/31/181945 RPT#: [id number] DC DATE: STATUS: ADM IN [facility] [address] [place] [address] END OF REPORT
--- NOTE | 2018-08-31 20:21 | NUR ---
CALLED, SECURITY CALL CODE OBTAINED. UPDATE GIVEN. QUESTIONS ANSWERED.
--- NOTE | 2018-08-31 20:50 | NUR ---
SCHEDULED MEDS GIVEN. WATER WITH ICE PROVIDED. NO DYSPHAGIA.
--- NOTE | 2018-08-31 21:04 | NUR ---
ASSISSTED PATIENT TO BED, GAIT STEADY. CALL LIGHT WITHIN REACH.
--- NOTE | 2018-08-31 21:43 | NUR ---
HR IN THE 120-150 AFIB, CARDIZEM INCREASED TO 10 MLS/HR.
--- NOTE | 2018-08-31 23:11 | NUR ---
REASSESSMENT COMPLETED PER FLOW SHEET. REMAINS IN A-FIB HR 98. BP STABLE. DENIES NEEDS. CALL LIGHT WITHIN REACH. WILL CONTINUE TO MONIOTOR.
--- NOTE | 2018-08-31 23:59 | NUR ---
PATIENT CONVERTED TO NS HR IN THE 70'S. WILL CONTINUE TO MONITOR.
[2018-09-01] VITALS (23 sets, daily range): BP systolic 100–136; BP diastolic 56–80
--- NOTE | 2018-09-01 00:08 | NUR ---
CALL LIGHT ANSWERED. ASSISSTED PATIENT OOB TO USE BEDSIDE COMMODE. 200 MLS EMA UOP NOTED. ASSISSTED PATIENT BACK IN BED. DENIES OTHER NEEDS. CALL LIGHT WITHIN REACH.
--- NOTE | 2018-09-01 01:00 | NUR ---
RESTING, NO ACUTE DISTRESS NOTED. DENIES NEEDS. WILL CONTINUE TO MONITOR.
--- NOTE | 2018-09-01 02:21 | NUR ---
HR 68, REMAINS NORMAL SINUS RHYTHM. CARDIZEM DECREASED TO 5 MLS/HR. WILL CONTINUE TO MONITOR.
--- NOTE | 2018-09-01 03:09 | NUR ---
REASSESSMENT COMPLETED PER FLOW SHEET, SEE FOR DETAILS. DENIES NEEDS. WILL CONTINUE TO MONITOR.
--- NOTE | 2018-09-01 03:31 | NUR ---
CALL LIGHT ANSWERED, ASSISSTED OOB TO BEDSIDE COMMODE, 210 MLS EMA UOP NOTED. ASSISSTED BACK IN BED. DENIES OTHER NEEDS. CALL LIGHT WITHIN REACH.
--- NOTE | 2018-09-01 05:00 | NUR ---
NO ACUTE DISTRESS NOTED. DENIES NEEDS. WILL CONTINUE TO MONITOR.
--- NOTE | 2018-09-01 05:58 | NUR ---
SCHEDULED MEDS GIVEN, WATER PROVIDED.
--- NOTE | 2018-09-01 06:00 | NUR ---
ASSISSTED PATIENT OOB TO CHAIR, CALL LIGHT WITHIN REACH. DENIES OTHER NEEDS. WILL CONTINUE TO MONITOR.
[2018-09-01 06:19] LABS: HEMATOCRIT 31.6 % (42.0-54.0); HEMOGLOBIN 10.8 g/dL (13.5-17.5); MCH 30.9 pg (26.0-34.0); MCHC 34.2 g/dL (31.0-37.0); MCV 90.3 fL (80.0-100.0); RBC 3.5 10x6/uL (4.20-6.10); RDW 12.4 % (11.5-14.5)
[2018-09-01 06:41] LABS: ALBUMIN 2.2 g/dL (3.4-5.0); ANION GAP 11.1 mmol/L (8-16); BILIRUBIN - TOTAL 0.64 mg/dL (0.2-1.3); CALCIUM 8.1 mg/dL (8.5-10.1); CARBON DIOXIDE 29.7 mmol/L (21.0-32.0); CREATININE - SERUM 1.1 mg/dL (0.6-1.3); POTASSIUM - SERUM 3.8 mmol/L (3.5-5.1); PROTEIN - SERUM 5.5 g/dL (6.4-8.2)
--- NOTE | 2018-09-01 07:00 | NUR ---
SHIFT REPORT RECEIVED. PT UP IN CHAIR. NO COMPLAINTS OF PAIN. CONTINUES IN A-FIB 110-130S. ON CARDIZEM DRIP AT 5MG/HR. RIJ CVL DRESSING INTACT. MIDSTERNAL INCISION WITH DRESSING C/D/I. SUBSTERNAL DRESSING WITH TPM WIRES IN PLACE. TPM SETTINGS VVI 60, VMA 10, SENSITIVITY 1. RLE INCISION AFSANEH. MAHI HOSE ON BOTH LE. ON 4L OF O2 VIA NC. PULLS 2250 ON I.S. SHIFT ASSESSMENT COMPLETED. CALL LIGHT IN REACH. BEDSIDE TABLE IN REACH. SAFETY MEASURES IN PLACE. WILL CONTINUE TO MONITOR.
--- NOTE | 2018-09-01 08:20 | NUR ---
HR CONTINUES IN 120S-130S. BETAPACE 80MG TAB GIVEN AT THIS TIME. ON 5MG/HR OF CARDIZEM. WILL CONTINUE TO MONITOR.
--- NOTE | 2018-09-01 08:54 | NUR ---
PT CONVERTED TO NORMAL SINUS AROUND 0830. AT THIS TIME HR IS IN 80S. DR. LEAL ORDERED CARDIZEM DRIP TO BE TURNED OFF AT THIS TIME. WILL CONTINUE TO MONITOR.
--- NOTE | 2018-09-01 10:18 | NUR ---
AHA diet with 0-40% intake of meals Pt complains that foods dont taste good and he is not able to eat Encouraged pt to eat the food because it was good for him. Discussed the importance of nutrition to help pt maintain strength Pt will not drink Ensure. Will trial Ensure clear Add milk to all trays Offered proteinex and pt denied RD following
--- NOTE | 2018-09-01 10:45 | NUR ---
ASSISTED TO BEDSIDE COMMODE. SMALL AMOUNT OF BROWN, SOFT STOOL NOTED. VOIDED ABOUT 200ML OF YELLOW CONCENTRATED URINE. REMAINS IN NORMAL SINUS IN HIGH 70S. NO FURTHER NEEDS. WILL CONTINUE TO MONITOR.
--- NOTE | 2018-09-01 12:40 | NUR ---
DR. LEAL AT BEDSIDE. PT REMAINS IN NORMAL SINUS IN 70S. DR. LEAL ORDERED PHYSICAL THERAPY CONSULT. WANTS PT TO BE AMBULATED THIS AFTERNOON. DR. LEAL STATED THAT TPM CAN BE DISCONNECTED FROM PT AND LEFT IN ROOM.
--- NOTE | 2018-09-01 14:17 | NUR ---
SUBSTERNAL DRESSING CHANGED PER ORDERS. TPM DISCONNECTED FROM PT PER DR. LEAL'S ORDERS. TPM IN ROOM. WIRES COILED UNDER 4X4 AND TAGEDERM DRESSSING. RESTING COMFORTABLY. HR 78 NORMAL SINUS. WILL CONTINUE TO MONITOR.
--- NOTE | 2018-09-01 14:40 | NUR ---
AMBULATED WITH PHYSICAL THERARPY AT THIS TIME. WALKED ABOUT 170FT. HR REMAIN IN 80S NORMAL SINUS. O2 SAT AFTER WALK WAS 97%.
--- NOTE | 2018-09-01 14:49 | MORECARE ---
CASE MANAGEMENT DISCHARGE SUMMARY PATIENT: MILADYS MINER UNIT: [id number] ADM DATE: 08/26/18 AGE: 73 : 43 SEX: M [facility] AUTHOR: SPIKEDOC PHYSICIAN: REFERRING PHYSICIAN: AMINA WILLETT MD DATE OF SERVICE: 09/01/18 Discharge Plan Patient Name: MILADYS MINER Facility: [facility]:[place] : 1945 Planned Disposition: Home Health Service Anticipated Discharge Date: Discharge Date: Expected LOS: Initial Reviewer: [email or web address] Initial Review Date: 08/25/2018 Generated: 09/01/18 3:49 pm Comments DCP- Discharge Planning Updated by [email or web address]: Trang Morales on 08/31/18 6:[address] Patient Name: MILADYS MINER Admission Status: ER Accout number: [id number] Admission Date: 08-26-2018 : 1945 Admission Diagnosis:ACUTE ISCHEMIC HEART DISEASE, UNSPECIFIED Attending: AMINA WILLETT Current LOS: 5 Anticipated DC Date: Planned Disposition: Home Health Service Primary Insurance: MEDICARE A & B Discharge Planning Comments: CM met with patient and spouse at bedside. Patient states he lives at home with his Tequila. Patient plans to return to his home upon discharge. Patient denies any use of medical equipment in the home. He states he does have a cane and walker available if needed. He also denies any HH services prior to admission. Spouse is requesting home health services upon discharge. She states she has a niece that works with [employer]. CM will continue to follow and assist as needed with discharge planning / needs. Applique Sewer: Trang Morales DCPIA - Discharge Planning Initial Assessment Updated by [email or web address]: Trang Morales on 08/31/18 7:39 pm * Is the patient Alert and Oriented? Yes * How many steps to enter\exit or inside your home? * PCP DR. VIK ORTA * Pharmacy [facility] * Preadmission Environment Home with Family * ADLs Independent * Equipment Cane * List name and contact numbers for known caregivers / representatives who currently or will assist patient after discharge: TEQUILA - SPOUSE - [phone], URSZULA VARELA- [phone] * Verbal permission to speak to the caregivers and representatives has been obtained from the patient. Yes * Community resources currently utilized None * Additional services required to return to the preadmission environment? No * Can the patient safely return to the preadmission environment? Yes * Has this patient been hospitalized within the prior 30 days at any hospital? No External Providers External Provider: OTHER-OTHER Next Contact Date: Service Request Date: Service Type: Resolution: Reviewer: Comments: Coverage Notice Reviewer: [id number] Rody Mendez Notice Issued Date-Time: 08/26/2018 16:21 Notice Type: Medicare Outpatient Observation Notice Notice Delivered To: Patient Relationship to Patient: Self Lead Database Developer Name: Delivery Method: HAND - Hand Delivered Sandra Days: Prior Verbal Notification: Recipient Understood Notice: Yes Recipient Signature: Yes Med Rec Note Co-signed by Attending: Coverage Notice Comment: Last DP export: 08/31/18 6:47 p Patient Name: MILADYS MINER Page [id number] at 1449 All edits/amendments must be made on the electronic document DICTATION DATE: 09/01/18 144 STOCK LIFTER: GUCCI 09/01/18 1449 RPT#: [id number] DC DATE: STATUS: ADM IN [facility] [address] [place] [address] END OF REPORT
--- NOTE | 2018-09-01 17:49 | NUR ---
RESTING COMFORTABLY IN CHAIR. HR IN 80S NORMAL SINUS. ATE ABOUT 40% OF DINNER. STATED "IT WAS GOOD, BUT IT WAS JUST TO MUCH OF IT." DENIES FURTHER NEEDS AT THIS TIME. WILL CONTINUE TO MONITOR.
[2018-09-02] VITALS (31 sets, daily range): BP systolic 102–148; BP diastolic 54–87
[2018-09-02 06:46] LABS: BASOPHILS 0.2 % (0-2); HEMATOCRIT 32.1 % (42.0-54.0); IMMATURE GRANULOCYTES 1.4 % (0-5); MCH 30.8 pg (26.0-34.0); MCHC 34.3 g/dL (31.0-37.0); MCV 89.9 fL (80.0-100.0); MEAN PLATELET VOLUME 10.3 fL (7.4-10.4); MONOCYTES 8.4 % (2-11); PLATELET COUNT 183 10x3/uL (130-400); RBC 3.57 10x6/uL (4.20-6.10); RDW 12.5 % (11.5-14.5); WBC 8.4 10x3/uL (4.8-10.8)
[2018-09-02 06:48] LABS: ALBUMIN 2.2 g/dL (3.4-5.0); ANION GAP 13.9 mmol/L (8-16); BILIRUBIN - TOTAL 0.62 mg/dL (0.2-1.3); CARBON DIOXIDE 25.6 mmol/L (21.0-32.0); CREATININE - SERUM 1.1 mg/dL (0.6-1.3); PROTEIN - SERUM 5.6 g/dL (6.4-8.2)
[2018-09-02 06:51] LABS: POTASSIUM - SERUM 4.5 mmol/L (3.5-5.1)
--- NOTE | 2018-09-02 07:00 | NUR ---
REC'D CARE OF PT. A&O X3. SITTING UP IN CHAIR. BREAKFAST TRAY SERVED.
--- NOTE | 2018-09-02 09:11 | NUR ---
AMBULATED 50 FEET AND BACK TO CHAIR WITHOUT DIFFICULTY. HAD LIQUID STOOL BEFORE HE GOT BACK TO ROOM. IN BATHROOM INDEPENDENTLY. HAD LIQUID STOOL BROWN. BLOOD IN STOOL WAS FROM "BAD HEMROIDS".
--- NOTE | 2018-09-02 09:11 | NUR ---
PULLS 1500 ON IS.
--- NOTE | 2018-09-02 09:42 | NUR ---
AT BEDSIDE ASSISTING WITH ORAL CARE.
--- NOTE | 2018-09-02 10:25 | NUR ---
REASSESSMENT COMPLETED PER FLOW SHEET. NO ACUTE CHANGES.
--- NOTE | 2018-09-02 12:05 | NUR ---
LUNCH TRAY SERVED.
--- NOTE | 2018-09-02 13:12 | NUR ---
DINORA AT BEDSIDE GETTING READY TO AMBULATE.
--- NOTE | 2018-09-02 13:43 | NUR ---
AMBULATED WITH DINORA PT AND BACK TO CHAIR.
--- NOTE | 2018-09-02 14:15 | NUR ---
REMAINS UP IN CHAIR. DENIES NEEDS.
--- NOTE | 2018-09-02 15:37 | NUR ---
REASSESSMENT COMPLETED PER FLOW SHEET. NO ACUTE CHANGES.
--- NOTE | 2018-09-02 17:09 | NUR ---
UP TO BATHROOM WITH ASSISSTANCE. WITHOUT INCIDENT.
--- NOTE | 2018-09-02 17:09 | NUR ---
DINNER TRAY SERVED.
--- NOTE | 2018-09-02 17:37 | NUR ---
REMAINS UP IN CHAIR. DENIES NEEDS.
[2018-09-03] VITALS (10 sets, daily range): BP systolic 102–130; BP diastolic 62–86
--- NOTE | 2018-09-03 04:05 | NUR ---
CVL PULLED WITH HOB FLAT AND PT SUPINE IN BED. CATH TIP INTACT WITHOUT DRAINAGE NOTED. PRESSURE DRESSING APPLIED AND HELD FOR 5 MINS. OPSITE PLACED OVER 4X4 DRESSING.
[2018-09-03] MEDS ORDERED: BETAPACE 80 MG80 MG PO (08:19)
[2018-09-03] MEDS ORDERED: LANOXIN125 MCG PO (08:19)
[2018-09-03] MEDS ORDERED: COLACE100 MG PO (08:22)
[2018-09-03] MEDS ORDERED: PERCOCET 5-3251 TAB PO (08:25)
--- NOTE | 2018-09-03 09:44 | MORECARE ---
CASE MANAGEMENT DISCHARGE SUMMARY PATIENT: MILADYS MINER UNIT: [id number] ADM DATE: 08/26/18 AGE: 73 : 44 SEX: M ROOM/BED: D.[facility] AUTHOR: SPIKEDOC PHYSICIAN: REFERRING PHYSICIAN: AMINA WILLETT MD DATE OF SERVICE: 09/03/18 Discharge Plan Patient Name: MILADYS MINER Facility: [facility]:[place] : 1945 Planned Disposition: Home Health Service Anticipated Discharge Date: Discharge Date: Expected LOS: Initial Reviewer: [email or web address] Initial Review Date: 08/25/2018 Generated: 09/03/18 10:44 am Comments DCP- Discharge Planning Updated by [id number]: Trang Morales on 09/03/18 8:[address] CM called [facility] [phone] to inform them of patient discharge. Dr. Yates will be covering [facility]. IMM explained and served 09/03/18 @ 09. Patient denies any discharge needs at this time. CM will continue to follow and assist as needed with discharge planning / needs. DCP- Discharge Planning Updated by [id number]: Trang Morales on 08/31/18 6:[address] Patient Name: MILADYS MINER Admission Status: ER Accout number: [id number] Admission Date: 08-26-2018 : 1945 Admission Diagnosis:ACUTE ISCHEMIC HEART DISEASE, UNSPECIFIED Attending: AMINA WILLETT Current LOS: 5 Anticipated DC Date: Planned Disposition: Home Health Service Primary Insurance: MEDICARE A & B Discharge Planning Comments: CM met with patient and spouse at bedside. Patient states he lives at home with his Tequila. Patient plans to return to his home upon discharge. Patient denies any use of medical equipment in the home. He states he does have a cane and walker available if needed. He also denies any HH services prior to admission. Spouse is requesting home health services upon discharge. She states she has a niece that works with [employer]. CM will continue to follow and assist as needed with discharge planning / needs. Manager Ccu: Trang Morales DCPIA - Discharge Planning Initial Assessment Updated by [id number]: Trang Morales on 08/31/18 7:39 pm * Is the patient Alert and Oriented? Yes * How many steps to enter\exit or inside your home? * PCP DR. VIK ORTA * Pharmacy [facility] * Preadmission Environment Home with Family * ADLs Independent * Equipment Cane * List name and contact numbers for known caregivers / representatives who currently or will assist patient after discharge: TEQUILA - SPOUSE - [phone], URSZULA - DAUGHTER- [phone] * Verbal permission to speak to the caregivers and representatives has been obtained from the patient. Yes * Community resources currently utilized None * Additional services required to return to the preadmission environment? No * Can the patient safely return to the preadmission environment? Yes * Has this patient been hospitalized within the prior 30 days at any hospital? No Coverage Notice Reviewer: [email or web address] Rody Mendez Notice Issued Date-Time: 08/26/2018 16:21 Notice Type: Medicare Outpatient Observation Notice Notice Delivered To: Patient Relationship to Patient: Self Fight Manager Name: Delivery Method: HAND - Hand Delivered Sandra Days: Prior Verbal Notification: Recipient Understood Notice: Yes Recipient Signature: Yes Med Rec Note Co-signed by Attending: Coverage Notice Comment: Reviewer: [email or web address] - Trang Morales Notice Issued Date-Time: 09/03/2018 9:34 Notice Type: IM Discharge Notice Notice Delivered To: Family Member Relationship to Patient: Spouse Fight Manager Name: STEPHY MONREAL Delivery Method: HAND - Hand Delivered Sandra Days: Prior Verbal Notification: Recipient Understood Notice: Yes Recipient Signature: Yes Med Rec Note Co-signed by Attending: Coverage Notice Comment: Last DP export: 09/01/18 1:49 p Patient Name: MILADYS MINER Page [id number] at 0944 All edits/amendments must be made on the electronic document DICTATION DATE: 09/03/18943 MATERIAL CONTROL SPECIALIST: GUCCI 09/03/18943 RPT#: [id number] DC DATE: STATUS: ADM IN [facility] [address] [place] [address] END OF REPORT
--- NOTE | 2018-09-03 10:43 | NUR ---
1030: DISCHARGE INSTRUCTIONS REVIEWED WITH PATIENT AND . 1040: DISCHARGED HOME WITH . ESCORTED TO VEHICLE IN WHEELCHAIR.
--- NOTE | 2018-09-03 11:56 | MORECARE ---
CASE MANAGEMENT DISCHARGE SUMMARY PATIENT: MILADYS MINER UNIT: [id number] ADM DATE: 08/26/18 AGE: 73 : 44 SEX: M ROOM/BED: D[facility] AUTHOR: GEORGE LALA PHYSICIAN: REFERRING PHYSICIAN: AMINA WILLETT MD DATE OF SERVICE: 09/03/18 Discharge Plan Patient Name: MILADYS MINER Facility: [facility]:[place] : 1945 Planned Disposition: Home Health Service Anticipated Discharge Date: Discharge Date: 09/03/2018 Expected LOS: Initial Reviewer: [email or web address] Initial Review Date: 08/25/2018 Generated: 09/03/18 12:56 pm Comments DCP- Discharge Planning Updated by [email or web address]: Trang Morales on 09/03/18 8:[address] CM called [facility] [facility] [phone] to inform them of patient discharge. Dr. Yates will be covering [place] [facility]. IMM explained and served 09/03/18 @ 0934. Patient denies any discharge needs at this time. CM will continue to follow and assist as needed with discharge planning / needs. DCP- Discharge Planning Updated by [email or web address]: Trang Morales on 08/31/18 6:[address] Patient Name: MILADYS MINER Admission Status: ER Accout number: [id number] Admission Date: 08-26-2018 : 1945 Admission Diagnosis:ACUTE ISCHEMIC HEART DISEASE, UNSPECIFIED Attending: AMINA WILLETT Current LOS: 5 Anticipated DC Date: Planned Disposition: Home Health Service Primary Insurance: MEDICARE A & B Discharge Planning Comments: CM met with patient and spouse at bedside. Patient states he lives at home with his Tequila. Patient plans to return to his home upon discharge. Patient denies any use of medical equipment in the home. He states he does have a cane and walker available if needed. He also denies any HH services prior to admission. Spouse is requesting home health services upon discharge. She states she has a niece that works with [employer]. CM will continue to follow and assist as needed with discharge planning / needs. Event Decorator And Designer: Trang Morales DCPIA - Discharge Planning Initial Assessment Updated by [email or web address]: Trang Morales on 08/31/18 7:39 pm * Is the patient Alert and Oriented? Yes * How many steps to enter\exit or inside your home? * PCP DR. VIK ORTA * Pharmacy [facility] * Preadmission Environment Home with Family * ADLs Independent * Equipment Cane * List name and contact numbers for known caregivers / representatives who currently or will assist patient after discharge: TEQUILA - SPOUSE - [phone], URSZULA - DAUGHTER- [phone] * Verbal permission to speak to the caregivers and representatives has been obtained from the patient. Yes * Community resources currently utilized None * Additional services required to return to the preadmission environment? No * Can the patient safely return to the preadmission environment? Yes * Has this patient been hospitalized within the prior 30 days at any hospital? No Coverage Notice Reviewer: [email or web address] Rody Mendez Notice Issued Date-Time: 08/26/2018 16:21 Notice Type: Medicare Outpatient Observation Notice Notice Delivered To: Patient Relationship to Patient: Self Donor Services Coordinator Name: Delivery Method: HAND - Hand Delivered Sandra Days: Prior Verbal Notification: Recipient Understood Notice: Yes Recipient Signature: Yes Med Rec Note Co-signed by Attending: Coverage Notice Comment: Reviewer: [id number] - Trang Morales Notice Issued Date-Time: 09/03/2018 9:34 Notice Type: IM Discharge Notice Notice Delivered To: Family Member Relationship to Patient: Spouse Donor Services Coordinator Name: STEPHY MONREAL Delivery Method: HAND - Hand Delivered Sandra Days: Prior Verbal Notification: Recipient Understood Notice: Yes Recipient Signature: Yes Med Rec Note Co-signed by Attending: Coverage Notice Comment: Last DP export: 09/03/18 8:44 a Patient Name: MILADYS MINER Page [phone] at 1156 All edits/amendments must be made on the electronic document DICTATION DATE: 09/03/18 115 OUTREACH REP: GUCCI 09/03/18 1155 RPT#: [id number] DC DATE:09/03/18 STATUS: DIS IN [facility] [address] [place] [address] END OF REPORT
--- NOTE | 2018-09-07 11:18 | TEE ---
PATIENT:MILADYS MINER MEDICAL RECORD: [id number] LOCATION:[place] [address] AGE OF PATIENT: 73 ADMISSION DATE: 08/26/18 SEX: M REFERRING PHYSICIAN: INTERPRETING PHYSICIAN: BRIDGER HUANG MD TRANSESOPHAGEAL ECHOCARDIOGRAM Date: 08/30/18 ANDREA CHARGE Y INDICATIONS: CABG PREMEDICATIONS: PATIENT'S RESPONSE PROCEDURE DOPPLER MEASUREMENTS: LVIT LA PA 64.0 RA LVOT 110 RVOT 53.0 Asc. Ao 109 AV Gradient Peak 4.7 AV Mean 2.4 AV Area 2.6 MV Gradient Peak 3.2 MV Mean 1.3 MV Area INTERPRETATION: LVd: 3.9 cm LVs: 1.7 cm Doppler: 2-D: COLOR FLOW DOPPLER NORMAL SALINE STUDY: MISCELLANOUS: DIAGNOSIS: PLAN: Store Planner:Jackelyn Huang Business Agent: Jackelyn FLORES COMMENTS: DATE OF SERVICE: 08/30/2018 PROCEDURE: Transesophageal echo evaluation of valvular structures during bypass surgery. FINDINGS: 1. Left ventricular chamber size is within normal limits. Left ventricular systolic function is normal. Overall ejection fraction estimated at 55%. 2. Left atrium, right atrium, and right ventricle chamber sizes are within TRANSESOPHAGEAL ECHOCARDIOGRAM REPORT [id number] MILADYS MINER normal limits. 3. Valvular structures have normal structure and motion. 4. Doppler interrogation reveals only trace mitral regurgitation, no other valvular insufficiency or stenosis. 5. No evidence of pericardial effusion or left ventricular thrombus. TRANSINT:[id number] Voice Confirmation ID: [id number] DOCUMENT ID: [id number] at 1118 CC: [id number] DICTATION DATE: 08/30/18 1030 COMPENSATION SUPERVISOR: 08/31/18 0143 DIS IN 09/03/18 [place] [id number]
--- NOTE | 2018-09-07 11:18 | EC ---
PATIENT:MILADYS MINER DATE OF SERVICE: 08/26/18 SEX: M MEDICAL RECORD: [id number] DATE OF : [birth year] LOCATION:[place] [address] AGE OF PATIENT: 73 ADMISSION DATE: 08/26/18 REFERRING PHYSICIAN: INTERPRETING PHYSICIAN: BRIDGER HUANG MD ECHOCARDIOGRAM REPORT ECHO CHARGES 4 ECHO COMPLETE Date: 08/30/18 CLINICAL DIAGNOSIS: LVF ECHOCARDIOGRAPHIC MEASUREMENTS (adult normal given) AC root (d.<3.7cm) 3.8 cm LV Septum d (<1.2 cm> 1.4 cm Valve Excursion 2.0 cm LV Septum (systole) 1.6 cm Left Atria (s.<4.0cm> 3.8 cm LVPW d(<1.2cm) 1.2 cm RV (d.<2.3cm) 2.6 cm LVPW (sytole) 1.6 cm LV diastole(<5.6CM) 4.5 cm MV E-F(>70mm/sec) cm LV systole 3.4 cm LVOT Diameter 2.0 cm MV exc.(>10mm) cm Est.ejection fraction (50-75%) % DOPPLER: LVIT cm/sec A 47.0 cm/sec E 78.0 cm/sec LA cm/sec RVSP 36.1 mmHg LVOT 110 cm/sec AOP1/2T m/s Asc. Ao 109 cm/sec RVOT 53.0 cm/sec RA cm/sec PA 64.0 cm/sec AV Gradient Peak 4.7 mmHg AV Mean 2.4 mmHg AV Area 2.6 cm MV Gradient Peak 3.2 mmHg MV Mean 1.3 mmHg MV Area cm COMMENTS: Sports Teacher: 1 JACOB HINOJOSAOE Wood Getter: 1 Dr. Huang TAPE# PACS Pericardial Effusion N DATE OF SERVICE: FINDINGS: 1. Left ventricular chamber size is within normal limits. Left ventricular systolic function is mildly depressed. Overall ejection fraction estimated at 40%. There is mild global hypokinesis throughout all segments without discrete wall motion abnormalities. 2. The left atrium, right atrium, and right ventricular chamber sizes are within normal limits. 3. Valvular structures have normal structure and motion. ECHOCARDIOGRAM REPORT [id number] MILADYS MINER 4. Doppler interrogation reveals only trace tricuspid regurgitation, no other valvular insufficiency or stenosis. 5. No evidence of pericardial effusion or left ventricular thrombus. TRANSINT:[id number] Voice Confirmation ID: [id number] DOCUMENT ID: [id number] BRIDGER HUANG MD at 1118 CC: [id number] DICTATION DATE: 08/31/1833 MIXER CRANE OPERATOR: 08/31/18 0947 DIS IN 09/03/18 [place] [id number] [place] [id number]
== END 2018-09-03 10:40 | disposition home health service (06) | DRG 233 ==
LOC: D.ER 16:12 → D.EDHOLD 20:57 → D.M2 20:57 → OBSVTIME 20:57 → D.M2 22:28 → D.SDCHOLD 08-26 16:01 → D.M2 08-26 16:04 → D.CVICU 08-26 17:11 → D.M2 08-26 17:11 → D.SDCHOLD 08-27 15:06 → D.CVICU 08-27 15:24
PROVIDERS: Family Medicine; Family Medicine Adult Medicine; Internal Medicine Interventional Cardiology; Thoracic Surgery (Cardiothoracic Vascular Surgery); ADMIT Internal Medicine Nephrology
PROC: B2151ZZ Fluoroscopy of Left Heart using Low Osmolar Contrast (ICD-10-PCS; 2018-08-26)
PROC: 4A023N7 Measurement of Cardiac Sampling and Pressure, Left Heart, Percutaneous Approach (ICD-10-PCS; 2018-08-26)
PROC: B2111ZZ Fluoroscopy of Multiple Coronary Arteries using Low Osmolar Contrast (ICD-10-PCS; principal; 2018-08-26 08:42)
PROC: 02100Z9 Bypass Coronary Artery, One Artery from Left Internal Mammary, Open Approach (ICD-10-PCS; 2018-08-27)
PROC: 021009W Bypass Coronary Artery, One Artery from Aorta with Autologous Venous Tissue, Open Approach (ICD-10-PCS; 2018-08-27)
PROC: 06BP4ZZ Excision of Right Saphenous Vein, Percutaneous Endoscopic Approach (ICD-10-PCS; 2018-08-27)
PROC: 5A1221Z Performance of Cardiac Output, Continuous (ICD-10-PCS; 2018-08-27)
PROC: B24BZZ4 Ultrasonography of Heart with Aorta, Transesophageal (ICD-10-PCS; 2018-08-27)
PROC: 5A09357 Assistance with Respiratory Ventilation, Less than 24 Consecutive Hours, Continuous Positive Airway Pressure (ICD-10-PCS; 2018-08-29)
DX: I25.10 Atherosclerotic heart disease of native coronary artery without angina pectoris (principal); J96.01 Acute respiratory failure with hypoxia; I24.9 Acute ischemic heart disease, unspecified; N17.9 Acute kidney failure, unspecified; I48.1 Persistent atrial fibrillation; J98.11 Atelectasis; I10 Essential (primary) hypertension; E78.5 Hyperlipidemia, unspecified; K21.9 Gastro-esophageal reflux disease without esophagitis; R00.0 Tachycardia, unspecified; I48.0 Paroxysmal atrial fibrillation

== ENCOUNTER → 2018-10-01 09:54 | Outpatient (CLI) | payer MEDICARE, BC ==
[2018-08-30 12:30] VITALS: BMI 27.1
[~2018-10-01 09:54] MED LIST: ALTACE10 MG PO; BETAPACE 80 MG80 MG PO; COLACE100 MG PO; LANOXIN125 MCG PO; LIPITOR20 MG PO; LOW DOSE ASPIRI81 M1 PO; NEURONTIN 300300 MG PO; NORVASC5 MG PO; PERCOCET 5-3251 TAB PO; TOPROL XL50 MG PO; TRICOR145 MG PO
[2018-10-01 10:35] LABS: HEMATOCRIT 40.2 % (42.0-54.0); HEMOGLOBIN 13.5 g/dL (13.5-17.5); MCH 29.9 pg (26.0-34.0); MCHC 33.6 g/dL (31.0-37.0); MCV 89.1 fL (80.0-100.0); MEAN PLATELET VOLUME 9.4 fL (7.4-10.4); RBC 4.51 10x6/uL (4.20-6.10); RDW 12.7 % (11.5-14.5); WBC 9.1 10x3/uL (4.8-10.8)
[2018-10-01 11:08] LABS: ALBUMIN 2.9 g/dL (3.4-5.0); ANION GAP 10.9 mmol/L (8-16); BILIRUBIN - TOTAL 0.34 mg/dL (0.2-1.3); CALCIUM 9.2 mg/dL (8.5-10.1); CARBON DIOXIDE 29.2 mmol/L (21.0-32.0); CREATININE - SERUM 1.3 mg/dL (0.6-1.3); POTASSIUM - SERUM 4.1 mmol/L (3.5-5.1); PROTEIN - SERUM 7.3 g/dL (6.4-8.2)
== END | disposition home or self-care (01) ==
LOC: D.LAB 09-30 08:45 → D.RAD 09:54 → D.LAB 10-04 09:00
PROVIDERS: ATTEND Thoracic Surgery (Cardiothoracic Vascular Surgery)
DX: J90 Pleural effusion, not elsewhere classified (principal); D64.9 Anemia, unspecified